=== PATIENT | female | born 1960 | race Caucasian/White ===

== ENCOUNTER 2017-11-29 07:08 | Day surgery (SDC) | payer OTHER ==
[~2017-11-29] VITALS: Ht 160 cm; Wt 68.0 kg
[~2017-11-29 07:08] MED LIST: ALBU90OI; IBUP800; LEVSOD50; TRAM50 PO
[2017-11-29] MEDS ORDERED: ATOR10 (07:50)
[2017-11-29] MEDS ORDERED: CHOL10002 (07:50)
== END 2017-11-29 09:51 | disposition home or self-care (01) ==
LOC: ORSCSDS 07:08
PROVIDERS: Surgery
PROC: 0DBM8ZX Excision of Descending Colon, Via Natural or Artificial Opening Endoscopic, Diagnostic (ICD-10-PCS; principal; 2017-11-29 08:30)
PROC: 0DBK8ZX Excision of Ascending Colon, Via Natural or Artificial Opening Endoscopic, Diagnostic (ICD-10-PCS; principal; 2017-11-29 08:30)
DX: Z12.11 Encounter for screening for malignant neoplasm of colon (principal); Z86.010 Personal history of colon polyps; D12.4 Benign neoplasm of descending colon; D12.2 Benign neoplasm of ascending colon; R73.03 Prediabetes; E03.9 Hypothyroidism, unspecified; F17.210 Nicotine dependence, cigarettes, uncomplicated; Z79.899 Other long term (current) drug therapy
CPT/HCPCS: 88305; J2405; J7120

== ENCOUNTER 2017-12-25 09:18 | Emergency (ER) | payer OTHER ==
[~2017-12-25] VITALS: Ht 162.6 cm; Wt 68.0 kg
[~2017-12-25 09:18] MED LIST changes: +ATOR10; +CHOL10002
== END 2017-12-25 10:33 | disposition home or self-care (01) ==
LOC: ER 09:18
DX: R07.81 Pleurodynia (principal); F17.200 Nicotine dependence, unspecified, uncomplicated; Z88.8 Allergy status to other drugs, medicaments and biological substances; Z88.5 Allergy status to narcotic agent; Z91.040 Latex allergy status; Z79.899 Other long term (current) drug therapy
CPT/HCPCS: 71101; 99283

== ENCOUNTER 2018-05-13 08:01 | Emergency (ER) | payer OTHER ==
[~2018-05-13] VITALS: Ht 160 cm; Wt 72.6 kg
[2018-05-13 08:19] LABS: Source, Urine Clean Catch
[2018-05-13] MEDS ORDERED: MONT10T PO (08:23)
[2018-05-13] MEDS ORDERED: LEVSOD75 PO (08:23)
[2018-05-13] MEDS ORDERED: ALBU90OI61 INH (08:23)
[2018-05-13] MEDS ORDERED: CHOL10002 (08:24)
[2018-05-13] MEDS ORDERED: BREO ELLIPTA 11 EACH IH (08:24)
[2018-05-13] MEDS ORDERED: CYAN500 (08:24)
[2018-05-13] MEDS ORDERED: Hair, Skin & N1 EACH PO (08:24)
[2018-05-13 08:34] LABS: Bilirubin, Urine Neg (Neg); Blood, Urine 2+ (Neg); Glucose Qualitative, Urine Neg (Neg); Ketones, Urine Neg (Neg); Leukocyte Esterase, Urine 1+ (Neg); Nitrite, Urine Neg (Neg); Protein, Urine 2+ (Neg); Urobilinogen, Urine NORM (Normal)
[2018-05-13 08:34] LABS: BASOPHILS ABSOLUTE AUTO 0.04 K/mm3 (0.00-0.23); BASOPHILS PERCENT AUTO 0 % (0-2); EOSINOPHILS ABSOLUTE AUTO 0.11 K/mm3 (0.00-0.68); EOSINOPHILS PERCENT AUTO 1 % (0-6); Hematocrit 46.8 % (33.0-51.0); Hemoglobin 15.8 g/dL (11.5-16.0); IMMATURE GRAN ABSOLUTE AUTO 0.04 K/mm3 (0.00-0.10); IMMATURE GRAN PERCENT AUTO 0 % (0-1); LYMPHOCYTES ABSOLUTE AUTO 1.38 K/mm3 (0.84-5.20); LYMPHOCYTES PERCENT AUTO 10 % (21-46); MONOCYTES ABSOLUTE AUTO 0.82 K/mm3 (0.16-1.47); MONOCYTES PERCENT AUTO 6 % (4-13); Mean Corpuscular HGB 30.5 pg (26.0-34.0); Mean Corpuscular HGB Conc 33.8 g/dL (31.5-36.5); Mean Corpuscular Volume 90 fL (80-100); Mean Platelet Volume 9.4 fL (9.1-12.4); NEUTROPHILS ABSOLUTE AUTO 11.62 K/mm3 (1.96-9.15); NEUTROPHILS PERCENT AUTO 83 % (41-73); Platelet Count 305 K/mm3 (150-400); RDW Coefficient Variation 12.5 % (11.7-14.2); Red Blood Cell Count 5.18 M/mm3 (3.80-5.20); White Blood Cell Count 14.01 K/mm3 (4.00-11.30)
[2018-05-13 08:45] LABS: Appearance, Urine Clear (Clear); Color, Urine Yellow (P-Yellow)
[2018-05-13 08:46] LABS: Bacteria Few /hpf; Mucus Light (0-Heavy); Red Blood Cells, Urine 0-2 /hpf (0-2); Squamous Epithelial Cells Few /hpf (Few)
[2018-05-13 08:56] LABS: Alanine Aminotransfer (ALT/SGP 31 U/L (12-78); Albumin, Blood 4.2 g/dL (3.4-5.0); Alk Phos 104 U/L (50-136); Anion Gap 8 mmol/L (6-16); Aspartate Aminotrans (AST/SGOT 18 U/L (12-37); Bilirubin, Total 0.5 mg/dL (0.1-1.0); Blood Urea Nitrogen 15 mg/dL (8-24); Bun/Creatinine Ratio 27.2 (12.0-20.0); CO2, Blood 26 mmol/L (21-32); Chloride, Blood 105 mmol/L (98-108); Creatinine, Blood 0.55 mg/dL (0.40-1.00); Globulin, Blood 4.2 g/dL (2.2-4.0); Glomerular Filtration Rate >60 (60-); Glucose, Blood 106 mg/dL (70-99); Potassium, Blood 3.9 mmol/L (3.5-5.5); Sodium, Blood 139 mmol/L (136-145); Total Protein, Blood 8.4 g/dL (6.4-8.2)
[2018-05-13] MEDS ORDERED: Zofran Odt4 MG SL (09:51)
== END 2018-05-13 10:03 | disposition home or self-care (01) ==
LOC: ER 08:01
PROVIDERS: Physician Assistant
DX: K52.9 Noninfective gastroenteritis and colitis, unspecified (principal); J44.9 Chronic obstructive pulmonary disease, unspecified; K80.20 Calculus of gallbladder without cholecystitis without obstruction; F17.200 Nicotine dependence, unspecified, uncomplicated; Z88.8 Allergy status to other drugs, medicaments and biological substances; Z88.5 Allergy status to narcotic agent; Z91.040 Latex allergy status; Z79.899 Other long term (current) drug therapy
CPT/HCPCS: 36415; 76705; 80053; 81001; 83690; 85025; 87086; 96360; 99284; J7030

== ENCOUNTER 2019-12-20 05:59 | Day surgery (SDC) | payer OTHER ==
[~2019-12-20] VITALS: Ht 160 cm; Wt 73.9 kg
[~2019-12-20 05:59] MED LIST changes: +ALBU90OI61 INH; +ASCO500 PO; +BREO ELLIPTA 11 EACH IH; +CYAN500; +Flonase 0.05% N16 GM; +Hair, Skin & N1 EACH PO; +LEVSOD75 PO; +MONT10T PO; +TUMS500 MG PO; +Zofran Odt4 MG SL
--- NOTE | 2019-12-20 06:44 | NUR ---
PT ADMITTED TO LOCATED WITHIN [facility]. AGREES WITH PLANNED SURGERY. LUNG SOUNDS CLEAR. PT STATES SHE IS ANXIOUS.
--- NOTE | 2019-12-20 13:53 | NUR ---
Patient up to Ambulate independently. Gait steady. Discharge instructions reviewed with patient. Patient verbalizes understanding. Copy given to patient to take home INCLUDING DARIO DRAIN INSTRUCTIONS AND DRAINAGE CHART. BREAST BINDER, GAUZE, ICE PACK GIVEN TO PT. AWAITING ON RIDE HOME.
--- NOTE | 2019-12-20 14:04 | NUR ---
Discharged via wheelchair to private car for ride home WITH DAUGHTER.
--- NOTE | 2019-12-21 08:25 | NUR ---
12/21/19 0825 Jannette Arellano VERIFICATIONS: EDIT CHART.
== END 2019-12-20 23:00 | disposition home or self-care (01) ==
LOC: ORSCMMR 05:59 → ORD 07:30 → ORSCMMR 07:30
PROVIDERS: Surgery
PROC: 0HBV0ZZ Excision of Bilateral Breast, Open Approach (ICD-10-PCS; principal; 2019-12-20 07:30)
DX: C50.811 Malignant neoplasm of overlapping sites of right female breast (principal); Z17.0 Estrogen receptor positive status [ER+]; Z40.01 Encounter for prophylactic removal of breast; J44.9 Chronic obstructive pulmonary disease, unspecified; R73.03 Prediabetes; Z79.899 Other long term (current) drug therapy; Z87.891 Personal history of nicotine dependence
CPT/HCPCS: 88307; J0690; J1100; J1170; J2250; J2405; J2704; J3010; J7120

== ENCOUNTER 2022-02-23 16:04 | Emergency (ER) | payer OTHER ==
[~2022-02-23] VITALS: Ht 162.6 cm; Wt 73.5 kg
[2022-02-23 16:42] LABS: BASOPHILS ABSOLUTE AUTO 0.08 K/mm3 (0.00-0.23); BASOPHILS PERCENT AUTO 1 % (0-2); EOSINOPHILS ABSOLUTE AUTO 0.44 K/mm3 (0.00-0.68); EOSINOPHILS PERCENT AUTO 5 % (0-6); Hemoglobin 16.2 g/dL (11.5-16.0); IMMATURE GRAN ABSOLUTE AUTO 0.02 K/mm3 (0.00-0.10); IMMATURE GRAN PERCENT AUTO 0 % (0-1); LYMPHOCYTES ABSOLUTE AUTO 3.94 K/mm3 (0.84-5.20); LYMPHOCYTES PERCENT AUTO 42 % (21-46); MONOCYTES ABSOLUTE AUTO 0.79 K/mm3 (0.16-1.47); MONOCYTES PERCENT AUTO 8 % (4-13); Mean Corpuscular HGB Conc 33.8 g/dL (31.5-36.5); Mean Corpuscular Volume 86 fL (80-100); NEUTROPHILS ABSOLUTE AUTO 4.22 K/mm3 (1.96-9.15); NEUTROPHILS PERCENT AUTO 45 % (41-73); Platelet Count 375 K/mm3 (150-400); RDW Coefficient Variation 12.6 % (11.7-14.2); RDW Standard Deviation 39.8 fL (35.1-46.3); Red Blood Cell Count 5.58 M/mm3 (3.80-5.20); White Blood Cell Count 9.49 K/mm3 (4.00-11.30)
[2022-02-23] MEDS ORDERED: LETR2.5 PO (17:19)
[2022-02-23] MEDS ORDERED: ATOR10 PO (17:19)
[2022-02-23] MEDS ORDERED: BUSP10 PO (17:20)
[2022-02-23] MEDS ORDERED: ASPI81CH PO (17:21)
[2022-02-23 17:24] LABS: Alanine Aminotransfer (ALT/SGP 35 U/L (12-78); Albumin, Blood 4.1 g/dL (3.4-5.0); Albumin/Globulin Ratio 0.9 (0.8-1.8); Alk Phos 157 U/L (50-136); Anion Gap 8 mmol/L (6-16); Aspartate Aminotrans (AST/SGOT 21 U/L (12-37); Bilirubin, Total 0.5 mg/dL (0.1-1.0); Blood Urea Nitrogen 11 mg/dL (8-24); Bun/Creatinine Ratio 15.9 (12.0-20.0); CO2, Blood 25 mmol/L (21-32); Calcium, Blood 10.2 mg/dL (8.5-10.1); Chloride, Blood 105 mmol/L (98-108); Creatinine, Blood 0.69 mg/dL (0.40-1.00); Globulin, Blood 4.4 g/dL (2.2-4.0); Glomerular Filtration Rate >60 (60-); Glucose, Blood 97 mg/dL (70-99); Potassium, Blood 3.9 mmol/L (3.5-5.5); Sodium, Blood 138 mmol/L (136-145); Total Protein, Blood 8.5 g/dL (6.4-8.2)
== END 2022-02-23 18:31 | disposition home or self-care (01) ==
LOC: ER 16:04
PROVIDERS: Physician Assistant
DX: I10 Essential (primary) hypertension (principal); R00.0 Tachycardia, unspecified; Z79.899 Other long term (current) drug therapy; Z91.040 Latex allergy status; Z88.8 Allergy status to other drugs, medicaments and biological substances
CPT/HCPCS: 36415; 71045; 80053; 84439; 84484; 85025; 93005; 93010; 99284-25

== ENCOUNTER 2024-07-16 11:49 | Day surgery (SDC) | payer MEDICARE, OTHER ==
[~2024-07-16] VITALS: Ht 160 cm; Wt 73.6 kg
[~2024-07-16 11:49] MED LIST changes: +ASPI81CH PO; +ATOR10 PO; +BUSP10 PO; +LETR2.5 PO; +Lactated Ringer's 1,000 ML IV ONE; +propofoL 50 ML IV ONE
[2024-07-16] MEDS ORDERED: METO25ER (14:02)
[2024-07-16] MEDS ORDERED: Lactated Ringer's 1,000 ML IV ONE (14:26)
[2024-07-16] MEDS ORDERED: propofoL 50 ML IV ONE (15:13)
--- NOTE | 2024-07-16 15:34 | NUR ---
07/16/24 1534 Adrienne Merritt ALSO USED SOFT COAG, 4 EFFECT, 80 WATT.
[2024-07-16 16:48] VITALS: BP 113/91
== END 2024-07-16 16:19 | disposition home or self-care (01) ==
LOC: ORSCSDS 11:49
DX: R13.10 Dysphagia, unspecified (principal); K22.6 Gastro-esophageal laceration-hemorrhage syndrome; K21.9 Gastro-esophageal reflux disease without esophagitis; Z12.11 Encounter for screening for malignant neoplasm of colon; D12.2 Benign neoplasm of ascending colon; Z86.010 Personal history of colon polyps; Z85.3 Personal history of malignant neoplasm of breast; I10 Essential (primary) hypertension; I51.7 Cardiomegaly; E03.9 Hypothyroidism, unspecified; R73.03 Prediabetes; Z79.82 Long term (current) use of aspirin; Z79.899 Other long term (current) drug therapy; Z87.891 Personal history of nicotine dependence
CPT/HCPCS: 88305; J2704; J7120

== ENCOUNTER → 2025-01-26 | Outpatient (CLI) | payer MEDICARE, OTHER ==
[~2025-01-26] MED LIST changes: -Lactated Ringer's 1,000 ML IV ONE; +METO25ER; -propofoL 50 ML IV ONE
[2025-01-26 14:10] LABS: BASOPHILS ABSOLUTE AUTO 0.06 K/mm3 (0.00-0.23); BASOPHILS PERCENT AUTO 1 % (0-2); EOSINOPHILS ABSOLUTE AUTO 0.11 K/mm3 (0.00-0.68); EOSINOPHILS PERCENT AUTO 1 % (0-6); Hematocrit 45.9 % (33.0-51.0); Hemoglobin 15.5 g/dL (11.5-16.0); IMMATURE GRAN ABSOLUTE AUTO 0.03 K/mm3 (0.00-0.10); IMMATURE GRAN PERCENT AUTO 0 % (0-1); LYMPHOCYTES ABSOLUTE AUTO 1.95 K/mm3 (0.84-5.20); LYMPHOCYTES PERCENT AUTO 19 % (21-46); MONOCYTES ABSOLUTE AUTO 0.64 K/mm3 (0.16-1.47); MONOCYTES PERCENT AUTO 6 % (4-13); Mean Corpuscular HGB 29.8 pg (26.0-34.0); Mean Corpuscular HGB Conc 33.8 g/dL (31.5-36.5); Mean Corpuscular Volume 88 fL (80-100); Mean Platelet Volume 9.6 fL (9.1-12.4); NEUTROPHILS ABSOLUTE AUTO 7.32 K/mm3 (1.96-9.15); NEUTROPHILS PERCENT AUTO 72 % (41-73); Platelet Count 381 K/mm3 (150-400); RDW Standard Deviation 41.7 fL (35.1-46.3); White Blood Cell Count 10.11 K/mm3 (4.00-11.30)
[2025-01-26 14:18] LABS: Albumin, Blood 4.5 g/dL (3.4-5.0); Albumin/Globulin Ratio 1.2 (0.8-1.8); Bun/Creatinine Ratio 17.1 (12.0-20.0); Creatinine, Blood 0.7 mg/dL (0.40-1.00); Globulin, Blood 3.9 g/dL (2.2-4.0); Potassium, Blood 3.8 mmol/L (3.5-5.5); Total Protein, Blood 8.4 g/dL (6.4-8.2)
== END ==
LOC: LAB 14:04 → LAB SHORT 14:04
PROVIDERS: Emergency Medicine
DX: R10.11 Right upper quadrant pain (principal)
CPT/HCPCS: 80053; 83690; 85025

== ENCOUNTER 2025-03-28 07:27 | Day surgery (SDC) | payer MEDICARE, OTHER ==
[~2025-03-28] VITALS: Ht 160 cm; Wt 67.8 kg
[2025-03-28] MEDS ORDERED: propofoL 20 ML IV ONE (07:51)
[2025-03-28] MEDS ORDERED: FentaNYL Citrate 50 MCG/ML 2 ML Injection ONE ×2 (07:52→11:34)
[2025-03-28] MEDS ORDERED: Lactated Ringer's 1,000 ML IV ONE (08:00)
[2025-03-28] MEDS ORDERED: CeFAZolin Sodium 2,000 MG VIAL ONE (08:11)
--- NOTE | 2025-03-28 08:49 | NUR ---
03/28/25 0849 CHELSEY EATON PT IN PRE OP - CALL LIGHT IN REACH, AWAITING MD ASSESSMENT. ENGAGED IN PRE OP TEACHING/DC TEACHING, ALL QUESTIONS ASKED AND ANSWERED. ASSISTED PT TO BATHROOM, BACK TO ROOM
[2025-03-28] MEDS ORDERED: Rocuronium Bromide 10 MG/ML 5ML Injection IV ONE (09:34)
[2025-03-28] MEDS ORDERED: Ondansetron HCl 2 MG / ML 2ML Vial ONE (09:34)
[2025-03-28] MEDS ORDERED: Ketorolac Tromethamine 30mg Vial ONE (09:34)
[2025-03-28] MEDS ORDERED: Dexamethasone Sod Phos 10 MG/ML 1ML VIAL ONE (09:34)
[2025-03-28] MEDS ORDERED: Sugammadex Sodium 200 MG/2ML SDV (100 MG/ML) ONE (09:35)
[2025-03-28] MEDS ORDERED: Bupivacaine 0.5% HCl 5 MG/ML 30MLVIAL INJ ONE (09:51)
--- NOTE | 2025-03-28 10:55 | NUR ---
03/28/25 1055 Alma Mathews 1036 PT ARRIVES TO PACU WITH NRB AT 10%. 1048 REMOVED OPA AND NRB WITH O2. PT MAINTAINING SATS ABOVE 94%
--- NOTE | 2025-03-28 11:31 | NUR ---
03/28/25 1131 Alma Mathews 1125 DAUGHTER AT BEDSIDE, SALUD. PT NOW REQUESTING SOMETHING FOR PAIN.
[2025-03-28] MEDS ORDERED: HYDROmorphone HCl 2 MG Tab ONE (11:56)
[2025-03-28 12:19] VITALS: BP 137/70
== END 2025-03-28 12:15 | disposition home or self-care (01) ==
LOC: ORSCSDS 07:27
PROVIDERS: Surgery
PROC: 0FT44ZZ Resection of Gallbladder, Percutaneous Endoscopic Approach (ICD-10-PCS; principal; 2025-03-28 09:00)
DX: K80.20 Calculus of gallbladder without cholecystitis without obstruction (principal); E03.9 Hypothyroidism, unspecified; Z87.891 Personal history of nicotine dependence; R73.03 Prediabetes; Z79.899 Other long term (current) drug therapy
CPT/HCPCS: 88304; A9270; J0690; J1100; J1885; J2405; J2704; J3010